=== PATIENT | male | born 1980 ===

== ENCOUNTER 2018-02-23 16:11 | Observation (INO) | payer OTHER ==
--- NOTE | 2018-02-23 17:25 | C.PDOC ---
History Of Present Illness <Diana Joe - Last Filed: 02/23/18 18:46> <Lois Castillo - Last Filed: 02/23/18 19:08> 37 year old male with no significant past medical history presents to the ED c/ o SOB, dizziness and near syncope episode that started earlier today. Patient reports he was running today, went back to work and then his symptoms started. Patient is also c/o epigastric pressure and chest pain as well. Patient still feeling dizzy. Patient states a few years ago he was found to have elevated cholesterol. Patient denies fever, chills, nausea, vomit, diarrhea, palpitations , weakness, numbness. (Diana Joe) History Per: Patient History/Exam Limitations: no limitations Onset/Duration Of Symptoms: Days Current Symptoms Are (Timing): Still Present Initiating Event: Exercising/Sports Quality: Tightness Exacerbating Factor(s): Exertion Associated Symptoms: Chest Pain Recent travel outside of the [place]: No Additional History Per: Patient <Diana Joe - Last Filed: 02/23/18 18:46> <Lois Castillo - Last Filed: 02/23/18 19:08> Time Seen by Provider: 02/23/18 16:39 Chief Complaint (Nursing): Shortness Of Breath Past Medical History Reviewed: Historical Data, Nursing Documentation, Vital Signs - Medical History PMH: No Chronic Diseases Surgical History: No Surg Hx Family History: States: Unknown Family Hx - Social History Hx Alcohol Use: Yes Hx Substance Use: No - Immunization History Hx Influenza Vaccination: No Hx Pneumococcal Vaccination: No <Diana Joe - Last Filed: 02/23/18 18:46> Vital Signs: Last Vital Signs Temp 97.7 F 02/23/18 16:20 Pulse 70 02/23/18 16:20 Resp 18 02/23/18 16:20 BP 168/67 H 02/23/18 16:20 Pulse Ox 100 02/23/18 18:47 Review Of Systems Constitutional: Negative for: Fever, Chills Cardiovascular: Positive for: Chest Pain Respiratory: Positive for: SOB with Excertion. Negative for: Cough Gastrointestinal: Positive for: Abdominal Pain. Negative for: Nausea, Vomiting Skin: Negative for: Rash Neurological: Positive for: Dizziness. Negative for: Weakness, Numbness <Diana Joe - Last Filed: 02/23/18 18:46> Physical Exam - Physical Exam Appears: Non-toxic, No Acute Distress Skin: Normal Color, Warm, Dry Head: Atraumatic, Normacephalic Eye(s): bilateral: Normal Inspection Nose: No Discharge Oral Mucosa: Moist Neck: Normal ROM, Supple Chest: Symmetrical Cardiovascular: Rhythm Regular, No Murmur Respiratory: Normal Breath Sounds, No Rales, No Rhonchi, No Wheezing Gastrointestinal/Abdominal: Soft, No Tenderness, No Guarding, No Rebound Extremity: Normal ROM, No Tenderness, No Swelling Neurological/Psych: Oriented x3 Gait: Steady <Diana Joe - Last Filed: 02/23/18 18:46> ED Course And Treatment - Laboratory Results Result Diagrams: 02/23/18 17:32 02/23/18 17:32 ECG: Interpreted By Me, Viewed By Me ECG Rhythm: Sinus Rhythm ECG Interpretation: Normal, No Acute Changes Rate From EC (BPM) O2 Sat by Pulse Oximetry: 100 (ON RA) Pulse Ox Interpretation: Normal - CT Scan/US CT head Other Rad Studies (CT/US): Read By Radiologist, Radiology Report Reviewed CT/US Interpretation: Accession No. : [id number]. Patient Name / ID : NOEMI BARBOUR / [id number]. Exam Date : 02/23/2018 17:49:51 ( Approved ). Study Comment : Sex / Age : M / [id number]. Creator : Mary Bird. Dictator : Mild Disabilities Teacher : Plant Operator Control Room Operator : Ramos Arellano MD. Approver2 : Report Date : 17:57:07. My Comment : . PROCEDURE: CT HEAD WITHOUT CONTRAST. HISTORY: Dizziness. Near syncope. COMPARISON: None available. TECHNIQUE: Axial computed tomography images were obtained through the head/brain without intravenous contrast. Radiation dose: Total exam DLP = 943.59 mGy-cm. This CT exam was performed using one or more of the following dose reduction techniques: Automated exposure control, adjustment of the mA and/or kV according to patient size, and/or use of iterative reconstruction technique. FINDINGS: HEMORRHAGE: No acute parenchymal, subarachnoid nor extra-axial hemorrhage. BRAIN: No evidence of large acute infarct. No obvious parenchymal nor extra-axial mass or collection seen on this noncontrast study. Ventricular and sulcal size are within range of normal for this patient's stated age. Note is made of slight asymmetry of the. VENTRICLES: No obstructive hydrocephalus. Mild asymmetry of the lateral ventricles right-sided which is slightly larger than the left felt to represent an anatomic variation. CALVARIUM: Unremarkable. PARANASAL SINUSES: Unremarkable as visualized. No significant inflammatory changes. MASTOID AIR CELLS: Unremarkable as visualized. No inflammatory changes. OTHER FINDINGS: None. IMPRESSION: No acute intracranial hemorrhage. <Diana Joe - Last Filed: 02/23/18 18:46> - Laboratory Results Result Diagrams: 02/23/18 17:32 02/23/18 17:32 <Lois Castillo - Last Filed: 02/23/18 19:08> Medical Decision Making <Diana Joe - Last Filed: 02/23/18 18:46> <Lois Castillo - Last Filed: 02/23/18 19:08> Medical Decision Making: Impression: SOB, dizziness Plan: * CT head * EKG * Labs * CXR * UA (Diana Joe) Disposition - Disposition Disposition Time: 18:46 <Diana Joe - Last Filed: 02/23/18 18:46> <Lois Castillo - Last Filed: 02/23/18 19:08> - Disposition Condition: FAIR Forms: [facility] (Faroese) - Clinical Impression Clinical Impression: Chest pressure, Near syncope, SOB (shortness of breath) - PA / STRONG NITRIC OPERATOR / Resident Statement MD/DO has reviewed & agrees with the documentation as recorded. - Scribe Statement The provider has reviewed the documentation as recorded by the Scribe <Diana Joe - Last Filed: 02/23/18 18:46> <Lois Castillo - Last Filed: 02/23/18 19:08> - Scribe Statement Ruben Castro All medical record entries made by the Scribe were at my direction and personally dictated by me. I have reviewed the chart and agree that the record accurately reflects my personal performance of the history, physical exam, medical decision making, and the department course for this patient. I have also personally directed, reviewed, and agree with the discharge instructions and disposition. (Diana Joe) Physician Patient Turnover Patient Signed Over To: Lois Castillo Handoff Comments: Labs and dispo pending <Diana Joe - Last Filed: 02/23/18 18:46> Addendum <Diana Joe - Last Filed: 02/23/18 18:46> <Lois Castillo - Last Filed: 02/23/18 19:08> Addendum: 02/23/18 19:07 Receivedturnover from BRIAN Joe wrt this pt.He is being admitted for observation for chest pain and near syncope.Awaiting lab results (Lois Castillo)
[2018-02-23 17:36] LABS: BASO # 0.1 K/uL (0.0-0.2); BASO % 0.8 % (0.0-2.0); EOS # 0.4 K/uL (0.0-0.7); EOS % 5.1 % (0.0-4.0); HEMOGLOBIN 15.8 g/dL (12.0-18.0); LYMPH # 1.9 K/uL (1.0-4.3); LYMPH % 22.5 % (20.0-40.0); MEAN CELL VOLUME 85.5 fL (80.0-94.0); MEAN CORPUSCULAR HGB CONC 35.1 g/dL (33.0-37.0); MEAN PLATELET VOLUME 8.3 fL (7.2-11.7); MONO # 0.5 K/uL (0.0-0.8); MONO % 5.4 % (0.0-10.0); NEUT # 5.7 K/uL (1.8-7.0); NEUT % 66.2 % (50.0-75.0); NRBC % 0.1 % (0.0-2.0); RBC 5.25 Mil/uL (4.40-5.90); WHITE BLOOD COUNT 8.6 K/uL (4.8-10.8)
[2018-02-23 17:55] LABS: ALB/GLOB RATIO 1.3 (1.0-2.1); ALBUMIN 4.6 g/dL (3.5-5.0); ALT/SGPT 37 U/L (21-72); AST/SGOT 27 U/L (17-59); BLOOD UREA NITROGEN 11 mg/dL (9-20); CALCIUM 8.2 mg/dl (8.6-10.4); GFR AFRICAN-AMERICAN > 60; GFR NON-AFRICAN AMERICAN > 60
--- NOTE | 2018-02-23 18:05 | CT ---
PROCEDURE: CT HEAD WITHOUT CONTRAST. HISTORY: Dizziness. Near syncope. COMPARISON: None available. TECHNIQUE: Axial computed tomography images were obtained through the head/brain without intravenous contrast. Radiation dose: Total exam DLP = 943.59 mGy-cm. This CT exam was performed using one or more of the following dose reduction techniques: Automated exposure control, adjustment of the mA and/or kV according to patient size, and/or use of iterative reconstruction technique. FINDINGS: HEMORRHAGE: No acute parenchymal, subarachnoid nor extra-axial hemorrhage. BRAIN: No evidence of large acute infarct. No obvious parenchymal nor extra-axial mass or collection seen on this noncontrast study. Ventricular and sulcal size are within range of normal for this patient's stated age. Note is made of slight asymmetry of the VENTRICLES: No obstructive hydrocephalus. Mild asymmetry of the lateral ventricles right-sided which is slightly larger than the left felt to represent an anatomic variation. CALVARIUM: Unremarkable. PARANASAL SINUSES: Unremarkable as visualized. No significant inflammatory changes. MASTOID AIR CELLS: Unremarkable as visualized. No inflammatory changes. OTHER FINDINGS: None. IMPRESSION: No acute intracranial hemorrhage.
[2018-02-23 18:13] LABS: CK-MB 0.96 ng/mL (0.0-3.38)
[2018-02-23 18:54] LABS: INR 1.1; PARTIAL THROMBOPLASTIN TIME 31 SECONDS (21-34); PROTHROMBIN TIME 12.3 SECONDS (9.7-12.2)
[2018-02-23 18:58] LABS: D DIMER < 200 ng/mlDDU (0-243)
[2018-02-23 19:55] LABS: URINE BACTERIA RARE (<OCC); URINE BILIRUBIN NEGATIVE (NEGATIVE); URINE BLOOD NEGATIVE (NEGATIVE); URINE CLARITY Clear (Clear); URINE COLOR Colorless (YELLOW); URINE GLUCOSE (UA) NORMAL (Normal); URINE LEUKOCYTE ESTERASE NEG Leu/uL (Negative); URINE PROTEIN NEGATIVE (NEGATIVE); URINE UROBILINOGEN NORMAL mg/dL (0.2-1.0)
[2018-02-23 20:01] LABS: BARBITURATES, UR NEGATIVE (NEGATIVE); BENZODIAZEPINES, UR NEGATIVE (NEGATIVE); OPIATES, UR NEGATIVE (NEGATIVE); PHENCYCLIDINE, UR NEGATIVE (NEGATIVE)
--- NOTE | 2018-02-23 20:32 | CP.PCM.HP ---
<GeraEilzabethSandy - Last Filed: 02/24/18 02:44> History of Present Illness - History of Present Illness History of Present Illness: CC:"shortness of breath" HPI: 37 year old male with no past medical history presents to the ER for SOB. 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 He states he was washing his hands when he felt like a strong pain through the middle of his chest and he couldn't breath. He states he drank a glass of water which helped him feel a bit better but the shortness of breath lasted for over an hour. He states this is the first time this has happened to him. He states he also felt lightheaded like he was going to pass out. He states he only ate a meal in the morning at 10am and only ate some fruit for lunch. Patient states he is now feeling much better but was worried and his friend brought him to the ER. Patient denies recent travel, sick contacts, nausea, vomiting, diarrhea or constipation. PMD: denies Past Medical History: denies Past Surgical History: denies Medications: denies Allergies: NKDA Family History: Mom HTN/DM Social History: lives with girlfriend; works with painting, denies smoking and illicit drug use. States he only drinks socially. Present on Admission - Present on Admission Any Indicators Present on Admission: No Review of Systems - Constitutional Constitutional: absent: Chills, Fever - EENT Eyes: absent: Change in Vision - Cardiovascular Cardiovascular: Chest Pain, Dyspnea, Lightheadedness, Syncope. absent: Leg Edema, Palpitations - Respiratory Respiratory: Dyspnea - Gastrointestinal Gastrointestinal: absent: Constipation, Diarrhea, Nausea, Vomiting - Genitourinary Genitourinary: absent: Dysuria - Neurological Neurological: Syncope. absent: Dizziness, Headaches Past Patient History - Infectious Disease Hx of Infectious Diseases: None - Past Social History Smoking Status: Never Smoked - PSYCHIATRIC Hx Substance Use: No - SURGICAL HISTORY Hx Surgeries: No - ANESTHESIA Hx Anesthesia: No Meds Allergies/Adverse Reactions: Allergies Allergy/AdvReac Type Severity Reaction Status Date / Time No Known Allergies Allergy Verified 05/30/16 08:11 Physical Exam - Constitutional Appears: Well, No Acute Distress - Head Exam Head Exam: ATRAUMATIC, NORMAL INSPECTION - Eye Exam Eye Exam: EOMI, Normal appearance - ENT Exam ENT Exam: Mucous Membranes Moist - Respiratory Exam Respiratory Exam: Clear to Auscultation Bilateral, NORMAL BREATHING PATTERN. absent: Decreased Breath Sounds, Rhonchi, Wheezes - Cardiovascular Exam Cardiovascular Exam: REGULAR RHYTHM, RRR, +S1, +S2. absent: Diastolic murmur, JVD, Systolic Murmur - GI/Abdominal Exam GI & Abdominal Exam: Normal Bowel Sounds, Soft. absent: Tenderness - Extremities Exam Extremities exam: Positive for: normal inspection. Negative for: pedal edema, tenderness - Neurological Exam Neurological exam: Alert, CN II-XII Intact, Oriented x3 Additional comments: Bilateral upper and lower muscle strength 5/5 Negative pronator drift Patient was able to walk and patient denied feeling lightheaded or dizzy - Psychiatric Exam Psychiatric exam: Normal Affect, Normal Mood - Skin Skin Exam: Dry, Intact, Normal Color Results - Vital Signs Recent Vital Signs: Last Vital Signs Temp 97.7 F 02/23/18 16:20 Pulse 70 02/23/18 19:25 Resp 16 02/23/18 19:25 BP 132/77 02/23/18 19:25 Pulse Ox 97 02/23/18 19:25 - Labs Result Diagrams: 02/23/18 17:32 02/23/18 17:32 Labs: Laboratory Results - last 24 hr 02/23/18 02/23/18 02/23/18 17:32 17:32 18:38 WBC 8.6 RBC 5.25 Hgb 15.8 Hct 44.9 MCV 85.5 MCH 30.0 MCHC 35.1 RDW 13.0 Plt Count 267 MPV 8.3 Neut % (Auto) 66.2 Lymph % (Auto) 22.5 [place] % (Auto) 5.4 Eos % (Auto) 5.1 H Baso % (Auto) 0.8 Neut # (Auto) 5.7 Lymph # (Auto) 1.9 [place] # (Auto) 0.5 Eos # (Auto) 0.4 Baso # (Auto) 0.1 PT 12.3 H INR 1.1 APTT 31 D-Dimer, Quantitative < 200 Sodium 137 Potassium 3.8 Chloride 97 L Carbon Dioxide 25 Anion Gap 19 BUN 11 Creatinine 0.6 L Est GFR ( Amer) > 60 Est GFR (Non-Af Amer) > 60 Random Glucose 88 Calcium 8.2 L Total Bilirubin 0.9 AST 27 ALT 37 Alkaline Phosphatase 85 Total Creatine Kinase 85 CK-MB (Mass) 0.96 Troponin I < 0.0120 Total Protein 8.0 Albumin 4.6 Globulin 3.5 Albumin/Globulin Ratio 1.3 Urine Color Urine Clarity Urine pH Ur Specific [place] Urine Protein Urine Glucose (UA) Urine Ketones Urine Blood Urine Nitrate Urine Bilirubin Urine Urobilinogen Ur Leukocyte Esterase Urine WBC (Auto) Urine RBC (Auto) Urine Bacteria Urine Opiates Screen Urine Methadone Screen Ur Barbiturates Screen Ur Phencyclidine Scrn Ur Amphetamines Screen U Benzodiazepines Scrn U Oth Cocaine Metabols U Cannabinoids Screen 02/23/18 02/23/18 19:40 19:40 WBC RBC Hgb Hct MCV MCH MCHC RDW Plt Count MPV Neut % (Auto) Lymph % (Auto) [place] % (Auto) Eos % (Auto) Baso % (Auto) Neut # (Auto) Lymph # (Auto) [place] # (Auto) Eos # (Auto) Baso # (Auto) PT INR APTT D-Dimer, Quantitative Sodium Potassium Chloride Carbon Dioxide Anion Gap BUN Creatinine Est GFR ( Amer) Est GFR (Non-Af Amer) Random Glucose Calcium Total Bilirubin AST ALT Alkaline Phosphatase Total Creatine Kinase CK-MB (Mass) Troponin I Total Protein Albumin Globulin Albumin/Globulin Ratio Urine Color Colorless Urine Clarity Clear Urine pH 6.0 Ur Specific [place] 1.004 Urine Protein Negative Urine Glucose (UA) Normal Urine Ketones 1+ H Urine Blood Negative Urine Nitrate Negative Urine Bilirubin Negative Urine Urobilinogen Normal Ur Leukocyte Esterase Neg Urine WBC (Auto) < 1 Urine RBC (Auto) < 1 Urine Bacteria Rare Urine Opiates Screen Negative Urine Methadone Screen Negative Ur Barbiturates Screen Negative Ur Phencyclidine Scrn Negative Ur Amphetamines Screen Negative U Benzodiazepines Scrn Negative U Oth Cocaine Metabols Negative U Cannabinoids Screen Negative Assessment & Plan - Assessment and Plan (Free Text) Assessment: 1.) Syncope - Head CT: no acute intracranial hemorrhage - f/u carotid dopplers - UA negative - UDS negative 2.) Chest Pain - Trop negative x2 - f/u trop - EKG: NSR - f/u ECHO - f/u chest xray - Aspirin 81mg daily - Crestor 2.5mg daily - f/u Lipid Panel, hA1c, TSH 3.) Prophylaxis - SCDS - Pepcid 20mg daily Case discussed with Dr. Atiya Boss PGY-1 <Mark Rajput - Last Filed: 02/24/18 06:16> Results - Vital Signs Recent Vital Signs: Last Vital Signs Temp 98 F 02/24/18 05:40 Pulse 68 02/24/18 05:40 Resp 20 02/24/18 05:40 BP 122/80 02/24/18 05:40 Pulse Ox 97 02/24/18 05:40 - Labs Result Diagrams: 02/23/18 17:32 02/23/18 17:32 Labs: Laboratory Results - last 24 hr 02/23/18 02/23/18 02/23/18 17:32 17:32 18:38 WBC 8.6 RBC 5.25 Hgb 15.8 Hct 44.9 MCV 85.5 MCH 30.0 MCHC 35.1 RDW 13.0 Plt Count 267 MPV 8.3 Neut % (Auto) 66.2 Lymph % (Auto) 22.5 [place] % (Auto) 5.4 Eos % (Auto) 5.1 H Baso % (Auto) 0.8 Neut # (Auto) 5.7 Lymph # (Auto) 1.9 [place] # (Auto) 0.5 Eos # (Auto) 0.4 Baso # (Auto) 0.1 PT 12.3 H INR 1.1 APTT 31 D-Dimer, Quantitative < 200 Sodium 137 Potassium 3.8 Chloride 97 L Carbon Dioxide 25 Anion Gap 19 BUN 11 Creatinine 0.6 L Est GFR ( Amer) > 60 Est GFR (Non-Af Amer) > 60 Random Glucose 88 Calcium 8.2 L Total Bilirubin 0.9 AST 27 ALT 37 Alkaline Phosphatase 85 Total Creatine Kinase 85 CK-MB (Mass) 0.96 Troponin I < 0.0120 Total Protein 8.0 Albumin 4.6 Globulin 3.5 Albumin/Globulin Ratio 1.3 Urine Color Urine Clarity Urine pH Ur Specific [place] Urine Protein Urine Glucose (UA) Urine Ketones Urine Blood Urine Nitrate Urine Bilirubin Urine Urobilinogen Ur Leukocyte Esterase Urine WBC (Auto) Urine RBC (Auto) Urine Bacteria Urine Opiates Screen Urine Methadone Screen Ur Barbiturates Screen Ur Phencyclidine Scrn Ur Amphetamines Screen U Benzodiazepines Scrn U Oth Cocaine Metabols U Cannabinoids Screen 02/23/18 02/23/18 02/24/18 19:40 19:40 02:06 WBC RBC Hgb Hct MCV MCH MCHC RDW Plt Count MPV Neut % (Auto) Lymph % (Auto) [place] % (Auto) Eos % (Auto) Baso % (Auto) Neut # (Auto) Lymph # (Auto) [place] # (Auto) Eos # (Auto) Baso # (Auto) PT INR APTT D-Dimer, Quantitative Sodium Potassium Chloride Carbon Dioxide Anion Gap BUN Creatinine Est GFR ( Amer) Est GFR (Non-Af Amer) Random Glucose Calcium Total Bilirubin AST ALT Alkaline Phosphatase Total Creatine Kinase CK-MB (Mass) Troponin I < 0.0120 Total Protein Albumin Globulin Albumin/Globulin Ratio Urine Color Colorless Urine Clarity Clear Urine pH 6.0 Ur Specific [place] 1.004 Urine Protein Negative Urine Glucose (UA) Normal Urine Ketones 1+ H Urine Blood Negative Urine Nitrate Negative Urine Bilirubin Negative Urine Urobilinogen Normal Ur Leukocyte Esterase Neg Urine WBC (Auto) < 1 Urine RBC (Auto) < 1 Urine Bacteria Rare Urine Opiates Screen Negative Urine Methadone Screen Negative Ur Barbiturates Screen Negative Ur Phencyclidine Scrn Negative Ur Amphetamines Screen Negative U Benzodiazepines Scrn Negative U Oth Cocaine Metabols Negative U Cannabinoids Screen Negative Assessment & Plan - Date & Time Date: 02/24/18 (I have seen and examined the patient. I agree with the findings and plan of care as documented by Dr. Boss. Patient with chest pain and Pre-syncope. ROMIx3 with EKG. Aspirin and Statin. Echo. Carotid dopplers. CT head neg for acute pathology. Monitor for acute changes.) Time: 06:15 Attending/Attestation - Attestation I have personally seen and examined this patient.: Yes I have fully participated in the care of the patient.: Yes I have reviewed all pertinent clinical information: Yes
[2018-02-23] MEDS ORDERED: Rosuvastatin Calcium 2.5 mg Tab PO SCH (22:00)
[2018-02-24 08:02] LABS: BASO # 0.1 K/uL (0.0-0.2); EOS # 0.4 K/uL (0.0-0.7); HEMOGLOBIN 15.1 g/dL (12.0-18.0); LYMPH # 1.6 K/uL (1.0-4.3); LYMPH % 29.8 % (20.0-40.0); MEAN CELL VOLUME 85.4 fL (80.0-94.0); MEAN CORPUSCULAR HEMOGLOBIN 30.4 pg (27.0-31.0); MEAN CORPUSCULAR HGB CONC 35.7 g/dL (33.0-37.0); MEAN PLATELET VOLUME 8.8 fL (7.2-11.7); MONO # 0.4 K/uL (0.0-0.8); NEUT % 54.2 % (50.0-75.0); NRBC % 0.2 % (0.0-2.0); RBC 4.97 Mil/uL (4.40-5.90); RED CELL DISTRIBUTION WIDTH 13.2 % (11.5-14.5); WHITE BLOOD COUNT 5.5 K/uL (4.8-10.8)
[2018-02-24 08:19] LABS: ALB/GLOB RATIO 1.3 (1.0-2.1); ALT/SGPT 31 U/L (21-72); AST/SGOT 27 U/L (17-59); BLOOD UREA NITROGEN 12 mg/dL (9-20); CALCIUM 8.8 mg/dl (8.6-10.4); GFR AFRICAN-AMERICAN > 60; GFR NON-AFRICAN AMERICAN > 60; HDL CHOLESTEROL 35 mg/dL (30-70)
--- NOTE | 2018-02-24 08:36 | RAD ---
PROCEDURE: CHEST RADIOGRAPH, 1 VIEW HISTORY: Shortness of breath COMPARISON: None available. FINDINGS: LUNGS: The lungs are well inflated and clear. PLEURA: No pneumothorax or pleural fluid seen. CARDIOVASCULAR: Normal. OSSEOUS STRUCTURES: No significant abnormalities. VISUALIZED UPPER ABDOMEN: Normal. OTHER FINDINGS: None. IMPRESSION: No active pulmonary disease.
[2018-02-24 08:37] LABS: T4 8.67 ug/dL (5.5-11.0)
[2018-02-24 08:45] LABS: LDL CHOLESTEROL 105 mg/dL (0-129)
[2018-02-24] MEDS ORDERED: Enoxaparin 40 mg Syringe SC SCH (10:00)
[2018-02-24 15:21] VITALS: O2SAT 98
[2018-02-24 15:35] VITALS: BP 144/87; PULSE 73; RESP 20; TEMP 98.1
--- NOTE | 2018-02-24 17:18 | CP.PCM.DIS ---
Provider - Provider Date of Admission: 02/23/18 19:23 Attending physician: Melinda Ro DO Time Spent in preparation of Discharge (in minutes): 30 Hospital Course - Lab Results Lab Results: Most Recent Lab Values WBC 5.5 K/uL (4.8-10.8) 02/24/18 07:41 RBC 4.97 Mil/uL (4.40-5.90) 02/24/18 07:41 Hgb 15.1 g/dL (12.0-18.0) 02/24/18 07:41 Hct 42.4 % (35.0-51.0) 02/24/18 07:41 MCV 85.4 fL (80.0-94.0) 02/24/18 07:41 MCH 30.4 pg (27.0-31.0) 02/24/18 07:41 MCHC 35.7 g/dL (33.0-37.0) 02/24/18 07:41 RDW 13.2 % (11.5-14.5) 02/24/18 07:41 Plt Count 251 K/uL (130-400) 02/24/18 07:41 MPV 8.8 fL (7.2-11.7) 02/24/18 07:41 Neut % (Auto) 54.2 % (50.0-75.0) 02/24/18 07:41 Lymph % (Auto) 29.8 % (20.0-40.0) 02/24/18 07:41 [place] % (Auto) 8.0 % (0.0-10.0) 02/24/18 07:41 Eos % (Auto) 7.0 % (0.0-4.0) H 02/24/18 07:41 Baso % (Auto) 1.0 % (0.0-2.0) 02/24/18 07:41 Neut # (Auto) 3.0 K/uL (1.8-7.0) 02/24/18 07:41 Lymph # (Auto) 1.6 K/uL (1.0-4.3) 02/24/18 07:41 [place] # (Auto) 0.4 K/uL (0.0-0.8) 02/24/18 07:41 Eos # (Auto) 0.4 K/uL (0.0-0.7) 02/24/18 07:41 Baso # (Auto) 0.1 K/uL (0.0-0.2) 02/24/18 07:41 PT 12.3 SECONDS (9.7-12.2) H 02/23/18 18:38 INR 1.1 02/23/18 18:38 APTT 31 SECONDS (21-34) 02/23/18 18:38 D-Dimer, Quantitative < 200 ng/mlDDU (0-243) 02/23/18 18:38 Sodium 139 mmol/L (132-148) 02/24/18 07:41 Potassium 4.0 mmol/L (3.6-5.2) 02/24/18 07:41 Chloride 100 mmol/L (98-107) 02/24/18 07:41 Carbon Dioxide 27 mmol/L (22-30) 02/24/18 07:41 Anion Gap 16 (10-20) 02/24/18 07:41 BUN 12 mg/dL (9-20) 02/24/18 07:41 Creatinine 0.7 mg/dL (0.8-1.5) L 02/24/18 07:41 Est GFR ( Amer) > 60 02/24/18 07:41 Est GFR (Non-Af Amer) > 60 02/24/18 07:41 Random Glucose 92 mg/dL (75-110) 02/24/18 07:41 Hemoglobin A1c 5.3 % (4.2-6.5) 02/24/18 07:41 Calcium 8.8 mg/dl (8.6-10.4) 02/24/18 07:41 Phosphorus 4.1 mg/dL (2.5-4.5) 02/24/18 07:41 Magnesium 1.9 mg/dL (1.6-2.3) 02/24/18 07:41 Total Bilirubin 0.9 mg/dL (0.2-1.3) 02/24/18 07:41 AST 27 U/L (17-59) 02/24/18 07:41 ALT 31 U/L (21-72) 02/24/18 07:41 Alkaline Phosphatase 86 U/L (38-126) 02/24/18 07:41 Total Creatine Kinase 85 U/L (55-170) 02/23/18 17:32 CK-MB (Mass) 0.96 ng/mL (0.0-3.38) 02/23/18 17:32 Troponin I < 0.0120 ng/mL (0.00-0.120) 02/24/18 07:41 Total Protein 7.1 g/dL (6.3-8.3) 02/24/18 07:41 Albumin 4.0 g/dL (3.5-5.0) 02/24/18 07:41 Globulin 3.1 gm/dL (2.2-3.9) 02/24/18 07:41 Albumin/Globulin Ratio 1.3 (1.0-2.1) 02/24/18 07:41 Triglycerides 146 mg/dL (0-149) 02/24/18 07:41 Cholesterol 157 mg/dL (0-199) 02/24/18 07:41 LDL Cholesterol Direct 105 mg/dL (0-129) 02/24/18 07:41 HDL Cholesterol 35 mg/dL (30-70) 02/24/18 07:41 Thyroxine (T4) 8.67 ug/dL (5.5-11.0) 02/24/18 07:41 TSH 3rd Generation 1.93 mIU/L (0.46-4.68) 02/24/18 07:41 Urine Color Colorless (YELLOW) 02/23/18 19:40 Urine Clarity Clear (Clear) 02/23/18 19:40 Urine pH 6.0 (5.0-8.0) 02/23/18 19:40 Ur Specific [place] 1.004 (1.003-1.030) 02/23/18 19:40 Urine Protein Negative mg/dL (NEGATIVE) 02/23/18 19:40 Urine Glucose (UA) Normal mg/dL (Normal) 02/23/18 19:40 Urine Ketones 1+ mg/dL (NEGATIVE) H 02/23/18 19:40 Urine Blood Negative (NEGATIVE) 02/23/18 19:40 Urine Nitrate Negative (NEGATIVE) 02/23/18 19:40 Urine Bilirubin Negative (NEGATIVE) 02/23/18 19:40 Urine Urobilinogen Normal mg/dL (0.2-1.0) 02/23/18 19:40 Ur Leukocyte Esterase Neg Olivia/uL (Negative) 02/23/18 19:40 Urine WBC (Auto) < 1 /hpf (0-5) 02/23/18 19:40 Urine RBC (Auto) < 1 /hpf (0-3) 02/23/18 19:40 Urine Bacteria Rare (<OCC) 02/23/18 19:40 Urine Opiates Screen Negative (NEGATIVE) 02/23/18 19:40 Urine Methadone Screen Negative (NEGATIVE) 02/23/18 19:40 Ur Barbiturates Screen Negative (NEGATIVE) 02/23/18 19:40 Ur Phencyclidine Scrn Negative (NEGATIVE) 02/23/18 19:40 Ur Amphetamines Screen Negative (NEGATIVE) 02/23/18 19:40 U Benzodiazepines Scrn Negative (NEGATIVE) 02/23/18 19:40 U Oth Cocaine Metabols Negative (NEGATIVE) 02/23/18 19:40 U Cannabinoids Screen Negative (NEGATIVE) 02/23/18 19:40 - Hospital Course Hospital Course: As per admission documentation 37 year old male with no past medical history presents to the ER for SOB. 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 He states he was washing his hands when he felt like a strong pain through the middle of his chest and he couldn't breath. He states he drank a glass of water which helped him feel a bit better but the shortness of breath lasted for over an hour. He states this is the first time this has happened to him. He states he also felt lightheaded like he was going to pass out. He states he only ate a meal in the morning at 10am and only ate some fruit for lunch. Patient states he is now feeling much better but was worried and his friend brought him to the ER. Patient denies recent travel, sick contacts, nausea, vomiting, diarrhea or constipation. Hospital Course Patient was admitted to the hospital for pre-syncope and chest pain r/o. Head CT: no acute intracranial hemorrhage CXR: No active pulmonary disease. Trop negative x 3 EKG: NSR, abnormal Q wave in inferior lead, no change from EKG on admission to EKG #3 D-Dimer <200 HDL 35: LDL 105: Triglycerides 157 Patient's chest pain had resolved without intervention. He was monitored for any acute changes. Patient was stable throughout his hospital stay. He was discharged after overnight observation without any acute events. He was discharged with the following instructions. Discharge Instructions Patient is to be discharged home per Dr. Ro. Patient is to follow up with the [facility] located in the [facility]. Please call and schedule an appointment within one week of being discharged. Patient is being discharged home with new medications but no prescriptions. Please take them as directed below until establishing care with the [facility] for further/continued management. It is being recommended that you have a cardiac evaluation as an outpatient due to an abnormal EKG (Q waves in the inferior leads). Thank you allowing us to take part in your care today. If you experience any new or worsening symptoms, please go directly to the nearest emergency location. Start new medications (no prescriptions) - over the counter Aspirin 81 mg, please take one tab by mouth daily Fish Oil - [place] 3, 1,000mg once daily Physical Exam - Constitutional Appears: Well, No Acute Distress - Head Exam Head Exam: ATRAUMATIC, NORMAL INSPECTION - Eye Exam Eye Exam: EOMI, Normal appearance - ENT Exam ENT Exam: Mucous Membranes Moist - Respiratory Exam Respiratory Exam: Clear to Auscultation Bilateral, NORMAL BREATHING PATTERN. absent: Decreased Breath Sounds, Rhonchi, Wheezes - Cardiovascular Exam Cardiovascular Exam: REGULAR RHYTHM, RRR, +S1, +S2. absent: Diastolic murmur, JVD, Systolic Murmur - GI/Abdominal Exam GI & Abdominal Exam: Normal Bowel Sounds, Soft. absent: Tenderness - Extremities Exam Extremities exam: Positive for: normal inspection. Negative for: pedal edema, tenderness - Neurological Exam Neurological exam: Alert, CN II-XII Intact, Oriented x3 Bilateral upper and lower muscle strength 5/5 Negative pronator drift Patient was able to walk and patient denied feeling lightheaded or dizzy - Psychiatric Exam Psychiatric exam: Normal Affect, Normal Mood - Skin Skin Exam: Dry, Intact, Normal Color Discharge Plan - Follow Up Plan Condition: FAIR Disposition: HOME/ ROUTINE Instructions: Heart Healthy Diet, Chest Pain (DC) Additional Instructions: Patient is to be discharged home per Dr. Ro. Patient is to follow up with the [facility] located in the [facility]. Please call and schedule an appointment within one week of being discharged. Patient is being discharged home with new medications but no prescriptions. Please take them as directed below until establishing care with the [facility] for further/continued management. It is being recommended that you have a cardiac evaluation as an outpatient due to an abnormal EKG (Q waves in the inferior leads). Thank you allowing us to take part in your care today. If you experience any new or worsening symptoms, please go directly to the nearest emergency location. Start new medications (no prescriptions) - over the counter Aspirin 81 mg, please take one tab by mouth daily Fish Oil - [place] 3, 1,000mg once daily Referrals: [facility] at [facility] [Outside]
--- NOTE | 2018-02-25 09:36 | VASCLAB ---
PROCEDURE: HISTORY: syncope COMPARISON: None available. TECHNIQUE: Grayscale and duplex Doppler evaluation of the cervical carotid and vertebral arteries were performed. The common carotid, carotid bifurcations and cervical Internal Carotid Artery (ICA) and proximal External Carotid Artery (ECA) were evaluated. The vertebral arteries were evaluated for gross patency and flow direction. Report prepared by Lee Garvin, BS, RVT FINDINGS: RIGHT CAROTID ARTERIES: 1. Common Carotid Artery: No significant focal plaque formation of the right common carotid artery. Maximum Peak Systolic velocity: 83 cm/sec: End-diastolic velocity 18 cm/sec. 2. Carotid Bifurcation: plaque formation. Maximum Peak Systolic velocity: 104 cm/sec: End-diastolic velocity 30 cm/sec. 3. Internal Carotid Artery: Plaque description: 3.1. Proximal Segment: Peak systolic velocity 101 cm/sec: End-diastolic velocity 30 cm/sec - % stenosis 0-15% 3.2. Middle Segment: Peak systolic velocity 71 cm/sec: End-diastolic velocity 31 cm/sec - % stenosis 0-15% 3.3. Distal Segment: Peak systolic velocity 78 cm/sec: End-diastolic velocity 33 cm/sec - % stenosis 0-15% 4. External Carotid Artery: No significant focal plaque formation. Peak systolic velocity 120 cm/sec 5. ICA/CCA Ratio: 1.0 LEFT CAROTID ARTERIES: 1. Common Carotid Artery: No significant focal plaque formation of the left common carotid artery. Maximum Peak Systolic velocity: 108 cm/sec: End-diastolic velocity 31 cm/sec. 2. Carotid Bifurcation: plaque formation. Maximum Peak Systolic velocity: 84 cm/sec: End-diastolic velocity 27 cm/sec. 3. Internal Carotid Artery: Plaque description: 3.1. Proximal Segment: Peak systolic velocity 109 cm/sec: End-diastolic velocity 28 cm/sec - % stenosis 0-15% 3.2. Middle Segment: Peak systolic velocity 59 cm/sec: End-diastolic velocity 24 cm/sec - % stenosis 0-15% 3.3. Distal Segment: Peak systolic velocity 46 cm/sec: End-diastolic velocity 20 cm/sec - % stenosis 0-15% 4. External Carotid Artery: No significant focal plaque formation. Peak systolic velocity 121 cm/sec 5. ICA/CCA Ratio: 1.0 VERTEBRAL ARTERIES: 1. Right Vertebral Artery: The right vertebral artery flow direction is antegrade. 2. Left Vertebral Artery: The left vertebral artery flow direction is antegrade. OTHER FINDINGS: 1. Right Brachial Blood pressure: 142 mmHg. 2. Left Brachial Blood pressure: 136 mmHg. IMPRESSION: RIGHT: Duplex scan does not suggest hemodynamically significant stenosis of the right extracranial carotid arteries. LEFT: Duplex scan does not suggest hemodynamically significant stenosis of the left extracranial carotid arteries.
--- NOTE | 2018-02-25 23:22 | CARD ---
APPROVED REPORT EKG Measurement Heart [id number] CT 140P16 [id number] <Conclusion> Normal sinus rhythm Normal ECG
== END 2018-02-24 16:31 | disposition home or self-care (01) ==
LOC: C.ER 16:11 → C.6T 19:23
PROVIDERS: ADMIT Hospitalist; ATTEND Hospitalist
DX: R07.89 Other chest pain (principal); E78.00 Pure hypercholesterolemia, unspecified; R94.31 Abnormal electrocardiogram [ECG] [EKG]
CPT/HCPCS: 36415; 70450; 71045; 80053; 80061; 80324; 80345; 80346; 80349; 80353; 80358; 80361; 81001; 82550; 82553; 83036; 83735; 83992; 84100; 84436; 84443; 84484; 85025; 85378; 85610; 85730; 93306; 93880; 97116; 97161; 97165; 97530; 99285; G0378; G8978; G8979; G8980; G8987; G8988; G8989; J1650

== ENCOUNTER 2018-10-14 12:43 | Emergency (ER) | payer OTHER ==
--- NOTE | 2018-10-14 14:49 | RAD ---
Date of service: 10/14/2018 PROCEDURE: Radiographs of the Lumbar Spine. HISTORY: fall COMPARISON: No prior. FINDINGS: BONES: The current study reveals slight cortical irregularity along the anterior superior corner of the L5 segment along a small anterior superior osteophytic ridge. These changes could be degenerative in origin however the possibility of a tiny chip fracture cannot be completely excluded. No evidence of retropulsion of the posterior cortex seen at this level. Small lucency along the mid inferior L5 endplate felt to be artifactual. DISC SPACES: Minor posterior disc space narrowing seen at several levels. Multilevel small marginal anterior osteophyte formation also noted. Mild facet arthropathy L5-S1. OTHER FINDINGS: None. IMPRESSION: There is slight irregularity along the anterior superior corner of the L5 segment along the anterior osteophyte arising from this level. Findings could be degenerative however the possibility of a small chip fracture cannot be completely excluded. No evidence of retropulsed fragments. Follow-up of CT scan could be performed if indicated
--- NOTE | 2018-10-14 14:54 | C.PDOC ---
History Of Present Illness 38 year old male presents to the ED for evaluation after he tripped and fell onto his right side 4 days ago. Patient is now complaining of right shoulder, right knee, right rib and lower back pain. Patient states symptoms have progressively worsened and presents to the ED for further evaluation. Patient denies head injury, LOC, extremity numbness/weakness. Time Seen by Provider: 10/14/18 13:38 Chief Complaint (Nursing): Upper Extremity Problem/Injury History Per: Patient History/Exam Limitations: no limitations Onset/Duration Of Symptoms: Days (4) Current Symptoms Are (Timing): Worse () Quality: "Pain" Additional History Per: Patient Past Medical History Reviewed: Historical Data, Nursing Documentation, Vital Signs Vital Signs: Last Vital Signs Temp 98.2 F 10/14/18 12:55 Pulse 82 10/14/18 12:55 Resp 18 10/14/18 12:55 BP 161/93 H 10/14/18 12:55 Pulse Ox 100 10/14/18 12:55 - Medical History PMH: No Chronic Diseases Surgical History: No Surg Hx Family History: States: Unknown Family Hx - Social History Hx Alcohol Use: Yes Hx Substance Use: No - Immunization History Hx Tetanus Toxoid Vaccination: No Hx Influenza Vaccination: No Hx Pneumococcal Vaccination: No Review Of Systems Musculoskeletal: Positive for: Shoulder Pain (right), Back Pain (right, lower ), Other (right knee, right rib pain ) Physical Exam - Physical Exam Appears: Non-toxic, No Acute Distress Skin: Normal Color, Warm, Dry Head: Atraumatic, Normacephalic Eye(s): bilateral: Normal Inspection Oral Mucosa: Moist Neck: Supple Chest: Symmetrical, No Deformity, Tenderness (right-sided rib ) Cardiovascular: Rhythm Regular, No Murmur Respiratory: Normal Breath Sounds, No Rales, No Rhonchi, No Wheezing Gastrointestinal/Abdominal: Soft, No Tenderness, No Guarding, No Rebound Back: Other (right lower back tenderness ) Extremity: Tenderness (right shoulder, right knee ), Capillary Refill (less than 2 seconds ) Neurological/Psych: Oriented x3, Normal Speech, Normal Cognition ED Course And Treatment O2 Sat by Pulse Oximetry: 100 (on RA) Pulse Ox Interpretation: Normal - Other Rad R shoulder XR X-Ray: Viewed By Me, Read By Radiologist Interpretation: PROCEDURE: Radiographs of the Right Shoulder. HISTORY: fall. COMPARISON: No prior. FINDINGS: BONES: Normal. No fracture. JOINTS: Normal. Glenohumeral and acromioclavicular joints preserved. No osteoarthritis. SOFT TISSUES: Normal. OTHER FINDINGS: None. IMPRESSION: Normal radiographs of the right shoulder. ribs with chest XR X-Ray: Viewed By Me, Read By Radiologist Interpretation: PROCEDURE: Radiographs of the Chest and Right Ribs. HISTORY: fall. COMPARISON: 02/23/2018. TECHNIQUE: Frontal radiograph of the chest and multiple oblique radiographs of the right ribs were obtained. FINDINGS: RIGHT RIBS: No fracture or focal lesion visualized. LUNGS: Clear. PLEURA: No pneumothorax or pleural fluid. CARDIOVASCULAR: Normal cardiac size. No pulmonary vascular congestion. No aortic atherosclerotic calcification present. OTHER FINDINGS: None. IMPRESSION: Unremarkable radiographs of the chest and right ribs. No right rib fracture. lumbar spine XR X-Ray: Viewed By Me, Read By Radiologist Interpretation: PROCEDURE: Radiographs of the Lumbar Spine. HISTORY: fall. COMPARISON: No prior. FINDINGS: BONES: The current study reveals slight cortical irregularity along the anterior superior corner of the L5 segment along a small anterior superior osteophytic ridge. These changes could be degenerative in origin however the possibility of a tiny chip fracture cannot be completely excluded. No evidence of retropulsion of the posterior cortex seen at this level. Small lucency along the mid inferior L5 endplate felt to be ar tifactual. DISC SPACES: Minor posterior disc space narrowing seen at several levels. Multilevel small marginal anterior osteophyte formation also noted. Mild facet arthropathy L5-S1. OTHER FINDINGS: None. IMPRESSION: There is slight irregularity along the anterior superior corner of the L5 segment along the anterior osteophyte arising from this level. Findings could be degenerative however the possibility of a small chip fracture cannot be completely excluded. No evidence of retropulsed fragments. Follow-up of CT scan could be performed if indicated knee XR X-Ray: Viewed By Me, Read By Radiologist Interpretation: Date of service: 10/14/2018. PROCEDURE: Right Knee Radiographs. HISTORY: fall. COMPARISON: None. FINDINGS: BONES: Normal. No fracture. JOINTS: Normal. No osteoarthritis. JOINT EFFUSION: None. OTHER FINDINGS: None. IMPRESSION: Normal radiographs of the right knee. - CT Scan/US CT lumbar spine Other Rad Studies (CT/US): Read By Radiologist, Radiology Report Reviewed CT/US Interpretation: PROCEDURE: CT Lumbar Spine without contrast. HISTORY: fall. COMPARISON: None available. TECHNIQUE: Axial computed tomography images were obtained of the lumbar spine without the use of intravenous contrast. Coronal and sagittal reformatted images were created and reviewed. Radiation dose: Total exam DLP = 820.81 mGy-cm. This CT exam was performed using one or more of the following dose reduction techniques: Automated exposure control, adjustment of the mA and/or kV according to patient size, and/or use of iterative reconstruction technique. FINDINGS: VERTEBRAE: No acute compression fractures no retropulsed fragments. Vertebral bodies exhibit normal stature and alignment. Facets normally aligned. Small elliptical shaped sclerotic focus within the L1 segment. DISCS/SPINAL CANAL/NEURAL FORAMINA: L1-2: Minor posterior disc space narrowing. No disc herniation or significant disc bulge. L2-3: Minor posterior disc space narrowing. Small broad-based bulge of the posterior annulus results some flattening of the ventral surface of the thecal sac however the overall central canal is adequate. Exit foramina also adequate. L3-4: Minor posterior disc space narrowing with no evidence of disc herniation or significant disc bulge. Central canal and exit foramina adequate. L4-5: Minor posterior disc space narrowing. No disc herniation or significant disc bulge. Central bony canal and exit foramina also adequate. L5-S1: Mild posterior disc space narrowing. Small broad-based bulge of the posterior annulus of. Facets are prominent. The overall central bony canal and exit foramina adequate. Note made of mild partially bridging sclerosis right SI joint. PARASPINAL SOFT TISSUES: Unremarkable. OTHER FINDINGS: None. IMPRESSION: Very minor multilevel degenerative spondylosis. No acute fractures. Progress Note: LS spine XR right shoulder XR, Right knee, and Right ribs XR. ordered and reviewed. Dr. Damico (radiologist) called, stating patient has a questionable fracture to his back. Suggested to order CT spine. CT Lumbar Spine ordered and reviewed, results are unremarkable for fracture. On reassessment, patient is resting comfortably, showing no signs of distress and is stable for discharge. Patient is ambulatory in the ED without distress. Patient is advised to follow up with orthopedist within 1 week for further evaluation. Disposition - Disposition Referrals: Rin Bowden MD [Staff Provider] - Disposition: HOME/ ROUTINE Disposition Time: 16:21 Condition: STABLE Additional Instructions: Follow up with Orthopedist within 2-3 days. Return to ED if feel worse. Prescriptions: Naproxen [Naprosyn] 1 tab PO BID PRN #25 tab PRN Reason: Pain Instructions: Contusion (DC), Bruised Rib (DC) Forms: [employer] (Thai), Work Excuse Print Language: [place]UWAITI - Clinical Impression Clinical Impression: Fall, Low back sprain, Shoulder sprain, Knee contusion, Contusion of ribs - PA / [employer]PARER / Resident Statement MD/DO has reviewed & agrees with the documentation as recorded. - Scribe Statement The provider has reviewed the documentation as recorded by the Scribe (Darby Dee) All medical record entries made by the Scribe were at my direction and persona lly dictated by me. I have reviewed the chart and agree that the record accurately reflects my personal performance of the history, physical exam, medical decision making, and the department course for this patient. I have also personally directed, reviewed, and agree with the discharge instructions and disposition.
--- NOTE | 2018-10-14 14:54 | RAD ---
Date of service: 10/14/2018 PROCEDURE: Radiographs of the Right Shoulder HISTORY: fall COMPARISON: No prior. FINDINGS: BONES: Normal. No fracture. JOINTS: Normal. Glenohumeral and acromioclavicular joints preserved. No osteoarthritis. SOFT TISSUES: Normal. OTHER FINDINGS: None. IMPRESSION: Normal radiographs of the right shoulder.
--- NOTE | 2018-10-14 14:55 | RAD ---
Date of service: 10/14/2018 PROCEDURE: Right Knee Radiographs. HISTORY: fall COMPARISON: None. FINDINGS: BONES: Normal. No fracture. JOINTS: Normal. No osteoarthritis. JOINT EFFUSION: None. OTHER FINDINGS: None. IMPRESSION: Normal radiographs of the right knee.
--- NOTE | 2018-10-14 14:55 | RAD ---
Date of service: 10/14/2018 PROCEDURE: Radiographs of the Chest and Right Ribs. HISTORY: fall COMPARISON: 02/23/2018 TECHNIQUE: Frontal radiograph of the chest and multiple oblique radiographs of the right ribs were obtained. FINDINGS: RIGHT RIBS: No fracture or focal lesion visualized. LUNGS: Clear. PLEURA: No pneumothorax or pleural fluid. CARDIOVASCULAR: Normal cardiac size. No pulmonary vascular congestion. No aortic atherosclerotic calcification present OTHER FINDINGS: None. IMPRESSION: Unremarkable radiographs of the chest and right ribs. No right rib fracture.
--- NOTE | 2018-10-14 16:01 | CT ---
Date of service: 10/14/2018 PROCEDURE: CT Lumbar Spine without contrast HISTORY: fall COMPARISON: None available. TECHNIQUE: Axial computed tomography images were obtained of the lumbar spine without the use of intravenous contrast. Coronal and sagittal reformatted images were created and reviewed. Radiation dose: Total exam DLP = 820.81 mGy-cm. This CT exam was performed using one or more of the following dose reduction techniques: Automated exposure control, adjustment of the mA and/or kV according to patient size, and/or use of iterative reconstruction technique. FINDINGS: VERTEBRAE: No acute compression fractures no retropulsed fragments. Vertebral bodies exhibit normal stature and alignment. Facets normally aligned. Small elliptical shaped sclerotic focus within the L1 segment. DISCS/SPINAL CANAL/NEURAL FORAMINA: L1-2: Minor posterior disc space narrowing. No disc herniation or significant disc bulge. L2-3: Minor posterior disc space narrowing. Small broad-based bulge of the posterior annulus results some flattening of the ventral surface of the thecal sac however the overall central canal is adequate. Exit foramina also adequate. L3-4: Minor posterior disc space narrowing with no evidence of disc herniation or significant disc bulge. Central canal and exit foramina adequate. L4-5: Minor posterior disc space narrowing. No disc herniation or significant disc bulge. Central bony canal and exit foramina also adequate. L5-S1: Mild posterior disc space narrowing. Small broad-based bulge of the posterior annulus of. Facets are prominent. The overall central bony canal and exit foramina adequate. Note made of mild partially bridging sclerosis right SI joint. PARASPINAL SOFT TISSUES: Unremarkable. OTHER FINDINGS: None. IMPRESSION: Very minor multilevel degenerative spondylosis. No acute fractures.
[2018-10-14 16:28] VITALS: BP 123/82; PULSE 78; RESP 20; TEMP 98.7
[2018-10-14 20:39] VITALS: O2SAT 100
== END 2018-10-14 16:38 | disposition home or self-care (01) ==
LOC: C.ER 12:43
DX: S33.5XXA Sprain of ligaments of lumbar spine, initial encounter (principal); S43.401A Unspecified sprain of right shoulder joint, initial encounter; S20.211A Contusion of right front wall of thorax, initial encounter; S80.01XA Contusion of right knee, initial encounter; W01.0XXA Fall on same level from slipping, tripping and stumbling without subsequent striking against object, initial encounter; Y92.9 Unspecified place or not applicable